=== PATIENT | female | born 1955 | race Caucasian/White ===

== ENCOUNTER 2020-07-24 06:29 | Observation (INO) ==
--- NOTE | 2020-07-22 08:26 | Anesthesiology Consultation ---
Date of Service July 22, 2020 Assessment & Plan (1) Encounter for pre-operative examination: Chart Review Chart Review: Acceptable Risk for Surgery (pending DOS CBC with diff ) and Patient NOT seen in Pre Admission Testing -Will check CBC with diff stat AM of surgery (secondary to current chemo treatment) Per nursing assessment 07/04/2020, patient denies any recent travel. No known Covid infection in the past 90 days. No known Covid positive contacts or Covid related symptoms. Covid test 07/18/20= negative Iwsjeu-b-Hdal insertion 02/28/2020 = done under MAC. No anesthesia issues noted per anesthesia record. Most recent cardiology office visit note (dated 11/12/19). Per note, PMHX of SVT (asymptomatic on beta yehuda) and mild MR/TR. No acute complaints. Recommend f/u in one year. History Surgery Operation Date: 07/24/20 07:00 Proposed Procedures p Bilateral Breast Mastectomy with Left Axillary [place] Lymph Node Biopsy - Win Singh, DO Height/Weight Height: 5 ft 8 in Weight: 58.967 kg Allergies Allergy/AdvReac Type Severity Reaction Status Date / Time Sulfa (Sulfonamide Allergy Intermediate hives Verified 07/04/20 13:39 Antibiotics) Medications Home Medications Medication Instructions Recorded Confirmed Last Taken atenolol 25 mg tablet 25 mg PO QPM 02/13/20 07/04/20 02/27/20 15:00 cholecalciferol (vitamin D3) 50 50 mcg PO QPM 02/13/20 07/04/20 02/27/20 15:00 mcg (2,000 unit) capsule hydroxyzine HCl 10 mg tablet 10 mg PO TID PRN 02/13/20 07/04/20 02/27/20 17:00 multivitamin 1 tab PO QPM 02/13/20 07/04/20 02/27/20 15:00 pantoprazole 40 mg PO QPM 07/04/20 07/04/20 Unknown Past Medical History Medical History (Updated 07/22/20 @ 08:40 by Yin Estrada PA-C) Anxiety Breast cancer left > reason for port placement Cardiac murmur dx 20 yrs ago 06/2020 ECHO showed mild to moderate MR, mild TR GERD (gastroesophageal reflux disease) Hiatal hernia Hx gestational diabetes Hypertension SVT (supraventricular tachycardia) FOLLOWS WITH DR. MARTINEZ (LAST SAW OCTOBER 2019) Tricuspid regurgitation Past Family History Family History Grandmother (Maternal) Heart disease Mother Hypertension Uncle Diabetes Other No family history of adverse response to anesthesia Past Surgical History Surgical History History of arthroscopic knee surgery 2000> left History of colonoscopy History of ear surgery was deaf in left ear, surgically repaired 1964 History of esophagogastroduodenoscopy (EGD) History of laparoscopic cholecystectomy 1977 History of laparoscopy x2 History of tooth extraction Hx of breast biopsy left Hx of tonsillectomy Port-A-Cath in place (02/28/20) Insertion of Mediport with Fluoroscopy Right Subclavian Dr. Singh 02/28/2020 (CHEMO EVERY 3 WEEKS/UNDER CURRENT TREATMENT) Social History Smoking Status: Never smoker Hx Alcohol Use: No Hx Substance Use: No substance use type: does not use Testing Laboratory Results Laboratory Tests 07/18/20 07/18/20 09:36 09:36 WBC 3.80 L Hgb 10.1 L Hct 30.4 L Plt Count 304 Sodium 140 Potassium 3.6 Chloride 106 Carbon Dioxide 29 BUN 14 Creatinine 0.82 Glucose 79 Electrocardiogram Date: 02/22/20 Findings: + NSR @ (61) Chest X-Ray Date: 02/28/20 A right subclavian central venous infusion port has been placed as above. No pneumothorax is identified post procedure. Suspect emphysema. No airspace consolidation or large pleural effusion is identified. Echocardiogram Date: 07/03/20 EF: 55% LV Function: normal Valvular Disease: + MR (Mild to moderate) Mild TR. Mildly increased PASP (36 mmHg).
[~2020-07-24 06:29] MED LIST: LACTATED RINGER'S 1,000 ML IV SCH; ceFAZolin 2000MG 2,000 MG/15 ML SYR IV SCH
[2020-07-24 07:02] LABS: Basophils # (auto) 0.02 K/uL (0-0.2); Basophils % (auto) 0.4 %; Eosinophils # (auto) 0.15 K/uL (0-0.5); Eosinophils % (auto) 2.7 %; Hematocrit (blood only) 30.1 % (37-47); Hemoglobin 10.1 g/dL (12.0-16.0); Lymphocytes # (auto) 1.92 K/uL (1.2-3.4); Lymphocytes % (auto) 33.9 %; Mean Corpuscular Hemoglobin 33.3 pg (25-34); Mean Corpuscular Volume 99.3 fL (80-100); Mean Platelet Volume 9.2 fL (7.4-10.4); Monocytes # (auto) 0.57 K/uL (0.11-0.59); Monocytes % (auto) 10.1 %; Neutrophils % (auto) 52.9 %; Platelet Count 174 K/uL (130-400); RDW Coefficient of Variation 13.8 % (11.5-14.5); RDW Standard Deviation 49.9 fL (36.4-46.3); Red Blood Count 3.03 M/uL (4.2-5.4); White Blood Count 5.66 K/uL (4.8-10.8)
[2020-07-24 07:06] LABS: Mean Corpuscular Hgb Conc 33.6 g/dL (32-36)
[2020-07-24] MEDS ORDERED: MIDAZOLAM HCL 1 MG/ML 2ML VIAL ONE ×2 (07:07→08:45)
[2020-07-24] MEDS ORDERED: ONDANSETRON INJ 2 MG/ML 2 ML VIAL ONE (07:07)
[2020-07-24] MEDS ORDERED: PROPOFOL IV EMULSION 10 MG/ML 20 ML VIAL IV ONE (07:07)
[2020-07-24] MEDS ORDERED: DEXAMETHASONE SOD INJ 4 MG/ML VIAL ONE (07:07)
[2020-07-24] MEDS ORDERED: fentaNYL citrate 100 MCG/2 ML VIAL ONE ×2 (07:07→10:42)
[2020-07-24] MEDS ORDERED: BUPIVACAINE LIPOSOME 1.3% 266 MG/20 ML VIAL ONE (07:15)
[2020-07-24] MEDS ORDERED: BUPIVACAINE 0.25% 30 ML VIAL ONE (07:44)
--- NOTE | 2020-07-24 08:44 | Nuclear Medicine Report ---
NM sentinel node inject only (left breast) CLINICAL HISTORY: LEFT AXILLARY SENTINEL NODE BIOPSY COMPARISON STUDY: No previous studies for comparison. FINDINGS: A timeout was performed. Five periareolar injections utilizing a total dose of 0.48 mCi technetium 99m Lymphoseek were perform ed. The patient was sent to the operating room for intraoperative localization. IMPRESSION: Successful left breast sentinel lymphoscintigraphy injection. ACT 112: Negative or not required by law. Electronically signed by: Osman Zavaleta M.D. 07/24/2020 8:43 AM
--- NOTE | 2020-07-24 08:54 | History & Physical Report ---
Date of Service July 24, 2020 Assessment & Plan (1) Breast cancer, left: We are going to proceed today with bilateral mastectomy with left sentinel lymph node biopsy. We discussed the risks of this which include bleeding, infection, hematoma, seroma, neurovascular injury, lymphedema, positive margins, DVT, PE, WI, CVA etc. Following all this I answered her questions. Patient agrees with the plan. History of Present Illness Primary Care Provider: Virgilio Engyasmine Yeager is here today for bilateral mastectomy with left sentinel lymph node biopsy. She was diagnosed last year with left-sided breast cancer that was ER/CO negative and HER-2/roxy positive. She underwent neoadjuvant therapy by Dr. Evans. She is now here today for surgical resection. We previously discussed all her options. She is opting for mastectomy with left sentinel lymph node biopsy. We are also going to do a prophylactic right mastectomy. She has had no changes in her health since her last visit with me in the office. Allergies Allergy/AdvReac Type Severity Reaction Status Date / Time Sulfa (Sulfonamide Allergy Intermediate hives Verified 07/04/20 13:39 Antibiotics) Home Medications Medication Instructions Recorded Confirmed Type atenolol 25 mg tablet 25 mg PO QPM 02/13/20 07/24/20 History cholecalciferol (vitamin D3) 50 50 mcg PO QPM 02/13/20 07/24/20 History mcg (2,000 unit) capsule hydroxyzine HCl 10 mg tablet 10 mg PO TID PRN 02/13/20 07/24/20 History multivitamin 1 tab PO QPM 02/13/20 07/24/20 History pantoprazole 40 mg PO QPM 07/04/20 07/24/20 History Past Med/Surg History Medical History Anxiety Breast cancer left > reason for port placement Cardiac murmur dx 20 yrs ago 06/2020 ECHO showed mild to moderate MR, mild TR GERD (gastroesophageal reflux disease) Hiatal hernia Hx gestational diabetes Hypertension SVT (supraventricular tachycardia) FOLLOWS WITH DR. MARTINEZ (LAST SAW OCTOBER 2019) Tricuspid regurgitation Surgical History History of arthroscopic knee surgery 1999> left History of colonoscopy History of ear surgery was deaf in left ear, surgically repaired 1964 History of esophagogastroduodenoscopy (EGD) History of laparoscopic cholecystectomy 1977 History of laparoscopy x2 History of tooth extraction Hx of breast biopsy left Hx of tonsillectomy Port-A-Cath in place (02/28/20) Insertion of Mediport with Fluoroscopy Right Subclavian Dr. Singh 02/28/2020 (CHEMO EVERY 3 WEEKS/UNDER CURRENT TREATMENT) Family History Grandmother (Maternal) Heart disease Mother Hypertension Uncle Diabetes Other No family history of adverse response to anesthesia Social History (Updated 02/13/20 @ 14:18 by Johanna Tolbert RN) Smoking Status: Never smoker Second Hand Exposure: Yes ( A CHILD); Hx Alcohol Use: No Hx Substance Use: No Preferred Language: Marshallese Communication Ability: Effective Wind Energy Technician Required: No Beliefs That Will Affect Care: None marital status: Current Living Situation: Spouse current occupational status: retired How many Children do You have: 1 Feels Safe at Home: Yes Safety Concerns: Feels Safe At This Time Assistive Devices: Denture - Upper and Glasses Physical Exam Constitutional: WD/WN, vitals as above no acute distress and not ill appearing Eyes: PERRL, conjunctivae normal, anicteric sclerae EOM intact bilaterally ENMT: external ear and nose normal, oropharynx normal Ears: no hearing impairment Neck: trachea midline, no thyromegaly Respiratory: normal respiratory effort; no respiratory distress and does not use accessory muscles Cardiovascular: Rate/Rhythm: regular rate and regular rhythm Chest (Breasts): Additional Comments: No change in her breast exam. Gastrointestinal (Abdomen): normal bowel sounds, soft, nontender, no hepatosplenomegaly Skin: no rashes, warm and dry Psychiatric: Orientation: alert, oriented x 3 and cooperative Results & Data ([facility]) Vital Signs (Past 12 Hours) Vital Signs Temp Pulse Resp BP Pulse Ox 07/24/20 07:00 36.6 C 93 H 16 152/82 H 100
[2020-07-24] MEDS ORDERED: ISOSULFAN BLUE 10 MG/ML VIAL 5 ML ONE (09:07)
[2020-07-24] MEDS ORDERED: BUPIVACAINE/EPINEPHRINE 0.5% MPF 1:200,000 30 ML VIAL ONE (09:07)
[2020-07-24] MEDS ORDERED: LIDOCAINE HCL 2% 2 ML VIAL/AMP(20MG/ML) INFIL ONE (09:20)
[2020-07-24] MEDS ORDERED: ONDANSETRON INJ 2 MG/ML 2 ML VIAL IV PRN ×2 (09:38→14:07)
[2020-07-24] MEDS ORDERED: ePHEDrine sulfate 50 MG/ML AMP IV PRN (09:38)
[2020-07-24] MEDS ORDERED: fentaNYL citrate 100 MCG/2 ML VIAL IV PRN (09:38)
[2020-07-24] MEDS ORDERED: ATROPINE SULFATE 0.1 MG/ML 10ML SYR IV PRN (09:38)
[2020-07-24] MEDS ORDERED: HYDROmorphone INJ 2 MG/ML SYR/VIAL IV PRN (09:38)
[2020-07-24] MEDS ORDERED: ePHEDrine sulfate 50 MG/ML SYR ONE (10:41)
[2020-07-24] MEDS ORDERED: PHENYLEPHRINE 100MCG/ML 5ML SYR ONE (10:41)
[2020-07-24] MEDS ORDERED: ePHEDrine sulfate 50 MG/ML AMP ONE (11:30)
--- NOTE | 2020-07-24 13:03 | Post Operative Brief Note ---
PG Immediate Post Op with CF Date of Surgery July 24, 2020 Pre & Post Diagnosis Operation Date: 07/24/20 09:00 Pre-Op Diagnosis: Left Breast Cancer Post-Op Diagnosis: Left Breast Cancer I identified the patient and participated in the time-out.: Yes Procedure Operation Date: 07/24/20 09:00 Actual Procedures p Bilateral Breast Mastectomy with Left Axillary [place] Lymph Node Biopsy(Bilateral) - Win Singh DO Surgeon Win Singh DO It Security Project Manager marcial Vasquez Estimated Blood Loss 100 Findings Consistent with Post-Op Diagnosis Specimens Specimen Description: Fresh Specimen: A.) Right Breast out of body at 1052 1 long lateral 2 short superior skin anterior Fresh Specimen: B.) Left Breast out of body at 1205 2 short superior 1 long lateral skin anterior Fresh Specimen: C.) Left Axillary [place] Lymph Node #1 out of body at 1210 D.) Left Axillary [place] Lymph Node #2 out of body at 1214 Drains Lester-Bee Drain (15 F flat x2)
[2020-07-24] MEDS ORDERED: MoRPHine SULFATE 4 MG/ML 1 ML CARP\\VIAL IV PRN (14:07)
[2020-07-24] MEDS ORDERED: HYDROCODONE/ACETAMOPHEN 5/325MG TAB PO PRN ×2 (14:07)
[2020-07-24] MEDS ORDERED: MoRPHine SULFATE 2 MG/ML CARP IV PRN (14:07)
[2020-07-24] MEDS ORDERED: hydrOXYzine HCl 10 MG TAB PO PRN (14:07)
[2020-07-24] MEDS ORDERED: LACTATED RINGER'S 1,000 ML IV SCH (14:07)
[2020-07-24] MEDS: LACTATED RINGER'S 1,000 ML IV SCH (14:28)
--- NOTE | 2020-07-24 14:55 | Operative Report ---
PG Post Operative Report Pre & Post Diagnosis Operation Date: 07/24/20 09:00 Pre-Op Diagnosis: Left Breast Cancer Post-Op Diagnosis: Left Breast Cancer I identified the patient and participated in the time-out.: Yes Procedure Operation Date: 07/24/20 09:00 Actual Procedures p Bilateral Breast Mastectomy with Left Axillary [place] Lymph Node Biopsy(Bi lateral) - Win Singh DO Surgeon Win Singh DO Fire Supervisor marcial Vasquez Estimated Blood Loss 100 Findings Consistent with Post-Op Diagnosis Specimens 1. right breast 2. left breast 3. left axillary sentinel lymph nodes. Description of Procedure Prior to coming to the operating room the patient had been to radiology where she underwent placement of technetium 99 in her left nipple- areolar region. After that she was brought to the operating room and placed in supine position. Both arms were extended. The entire upper abdomen, entire chest ,both breasts ,upper arms and axilla were all sterilely prepped and draped in usual fashion. I began on the right side. We made an elliptical incision from the sternum around the breast into the right axilla. This was carried down through soft tissue using cautery. I made flaps in 360 degrees. We continued to use traction /countertraction and cautery for the majority of the dissection. We did use 3-0 Vicryl ties when needed for vascular control. We continued this dissection superiorly to the clavicle inferior to the inframammary fold and laterally into the axilla itself including the axillary tail. We took the tissue down to the pectoralis muscle posteriorly but left pectoralis fashion behind. Once we had the entire specimen out I marked it such that two short stitches were superior one long stitch was lateral and the nipple- areolar complex/skin represented the anterior margin. Any bleeding points were controlled using cautery. We thoroughly irrigated the wound. I then used tisseel sealant over all the raw surfaces to help prevent seroma and hematoma formation. We waited until this dried and then through a separate stab incision in the inferior lateral aspect we placed a #10 flat Lester-Bee drain. It was secured to the skin using 2-0 nylon. We then closed the wound in multiple layers using 0 Vicryl for deep layers 2-0 Vicryl for mid layers and 3-0 Monocryl in running fashion for the skin. Benzoin ,Steri-Strips, xeroform, gauze and tape were all used for dressing. Next We changed our gloves. My attention then turned to the left breast. Using a fresh blade but a similar incision we made an elliptical incision again from the midline /sternum around to the left axilla. Again I made skin flaps in 360 degrees. We continued to use traction/ countertraction to perform the mastectomy. Again superiorly we carried the tissue up to the clavicle, inferiorly to the inframammary fold and laterally into the axilla including the axillary tail. I did not see any gross abnormalities. Again we marked the specimen such that one long stitch was lateral ,two short stitches were superior and the skin /nipple areolar complex represented the anterior margin. Again we carried the dissection down to the pectoralis fascia but did not remove any pectoralis fascia. Next we used the neoprobe device to identify several left axillary lymph nodes. We were able to use traction/ countertraction and cautery to come around the pedicle of these nodes. We were able to identify two separate "hot" nodes which were both removed separately. They were sent as sentinel lymph node #1 and sentinel lymph node #2. After we had these two lymph nodes out there was minimal residual background activity. At this point I thoroughly irrigated the wound. There was adequate hemostasis. Again Tisseel sealant was placed on all the raw surfaces and allowed to dry. Again a #10 flat Lester-Bee drain was brought in through a separate stab incision and placed into the wound bed. Was also closed in multiple layers using 0 Vicryl for deep layers 2-0 Vicryl for mid layers and 3-0 Monocryl for skin. Again benzoin ,Steri-Strips,xeroform, gauze and tape were used as a dressing. A surgi-bra was also placed. My physician bankruptcy assistant was present for the entire case. She was instrumental in helping to prep the patient. She was critical in retraction/exposure throughout my entire dissection as well as with wound closure and dressing placement. I attest to the content of the Intraoperative Record and any orders documented therein. Any exceptions are noted below.
[2020-07-24] MEDS: IBUPROFEN 200 MG TAB PO SCH ×2 (15:41→19:44)
[2020-07-24] MEDS: ceFAZolin 2000MG 2,000 MG/15 ML SYR IV SCH (17:43)
[2020-07-24] MEDS ORDERED: PANTOprazole 40 MG TAB PO SCH (21:00)
[2020-07-24] MEDS ORDERED: ATENOLOL 25 MG TABLET PO SCH (21:00)
[2020-07-25] MEDS: ceFAZolin 2000MG 2,000 MG/15 ML SYR IV SCH ×2 (01:02→08:42)
[2020-07-25] MEDS: IBUPROFEN 200 MG TAB PO SCH ×2 (01:02→08:41)
[2020-07-25] MEDS: LACTATED RINGER'S 1,000 ML IV SCH (01:54)
[2020-07-25 07:52] LABS: Hematocrit (blood only) 22.1 % (37-47); Hemoglobin 7.4 g/dL (12.0-16.0); Mean Corpuscular Hemoglobin 33.2 pg (25-34); Mean Corpuscular Hgb Conc 33.5 g/dL (32-36); Mean Corpuscular Volume 99.1 fL (80-100); Mean Platelet Volume 9.2 fL (7.4-10.4); Platelet Count 160 K/uL (130-400); RDW Coefficient of Variation 14.1 % (11.5-14.5); RDW Standard Deviation 50.7 fL (36.4-46.3); Red Blood Count 2.23 M/uL (4.2-5.4); White Blood Count 8.05 K/uL (4.8-10.8)
[2020-07-25 08:17] LABS: Calcium 8.8 mg/dl (8.5-10.1); Creatinine Clr Calc Pharmacy 63.1 ml/min; Est GFR (African American) 81.6; Est GFR (Non-African American) 70.4; Potassium 3.8 mmol/L (3.5-5.1)
--- NOTE | 2020-07-25 09:39 | Surgery Progress Note ---
Date of Service July 25, 2020 Assessment & Plan (1) Breast cancer, left: Doing well. She would like to go home which I think is reasonable. Wound care instructions given. I would like to see her in about 1 week's time. Admission and Anticipated Discharge Date Admission Date: July 24, 2020 Subjective Patient doing well postoperative day #1. Pain a 2 out of 10. Physical Exam Physical Exam: Alert and oriented. No acute distress. JPs with small amount of serosanguineous fluid. Results & Data ([facility]) Vital Signs (Past 12 Hours) Vital Signs Temp Pulse Resp BP Pulse Ox 07/25/20 06:51 36.8 C 54 L 16 100/63 100 07/25/20 03:42 36.8 C 74 14 96/59 L 100 07/24/20 23:21 36.8 C 77 14 99/61 L 100 07/24/20 21:45 36.6 C 91 H 16 132/77 99 PG Care Time/CCT Total # of Minutes Spent Total Time Spent with Patient: Total time spent is greater than 50% in coordination of care (as documented) at patient's floor/unit and/or counseling patient: Coding Level of Care Code None Diagnoses Breast cancer, left C50.912
--- NOTE | 2020-07-29 11:46 | Discharge Summary ---
Date of Service July 29, 2020 Admission HPI Per Admitting Provider Shobha is here today for bilateral mastectomy with left sentinel lymph node biopsy. She was diagnosed last year with left-sided breast cancer that was ER/NH negative and HER-2/roxy positive. She underwent neoadjuvant therapy by Dr. Evans. She is now here today for surgical resection. We previously discussed all her options. She is opting for mastectomy with left sentinel lymph node biopsy. We are also going to do a prophylactic right mastectomy. She has had no changes in her health since her last visit with me in the office. Principal Diagnosis breast cancer, left s/p bilateral breast mastectomy Discharge Exam awake/alert Constitutional no acute distress Skin b/l breast MEGAN drains with serosanguineous drainage. Incisions c/d/i Discharge Data Allergies Allergy/AdvReac Type Severity Reaction Status Date / Time Sulfa (Sulfonamide Allergy Intermediate hives Verified 07/04/20 13:39 Antibiotics) Procedures Performed Operation Date: 07/24/20 09:00 Actual Procedures p Bilateral Breast Mastectomy with Left Axillary [place] Lymph Node Biopsy(Bilateral) - Win Singh, Ordered Studies 07/24/20 05:00 US - OR guided needle placemen Routine Hospital Course (1) Breast cancer, left: This is a 64yF with a PMH of left breast cancer who presented to the [facility] on 07/24/20 for a scheduled bilateral breast mastectomy and left sentinel lymph node biopsy. This was performed in the OR with Dr. Singh without event. The patient tolerated the procedure well, see op note for full details. The patient recovered in the PACU and was transferred to the surgical nursing floor in stable condition with MEGAN drain x2. Post operatively the patient's diet was advanced as tolerated and pain remained controlled with prn IV and po pain medication. Ambulation was encouraged as tolerated. On POD#1 the patient was tolerating a regular diet and pain remained well controlled. Bilateral MEGAN drains had minimal serosang. drainage. Drain care education provided to patient. She was deemed stable for discharge to home on 3. She was provided discharge instructions and was asked to follow up in clinic with Dr. Singh within 1-2 weeks. Total Time Total Time Spent Total Time Spent (In Minutes): 10 Discharge Plan Discharge Items Patient Disposition: Home - Self-Care Reason For Visit: Left Breast Cancer-- INJECT ONLY Discharge Diagnosis: bilateral mastectomy Activity: As commented below Lifting: No more than 10 pounds Bathing Comment: sponge bath until rains are removed Driving/Machine Use: when pain free Non-emergency contact: Surgeon Call non-emergency contact if: you have any medication questions, your pain is not controlled, you have a fever, your temperature is above 101.5, your wound has increased redness and your wound has increased drainage Follow-up/Referrals: Win Singh, DO [Surgeon] - 08/06/20 9:30 am (Call the office to make an appt for next Tuesday) Virgilio Tellez [Primary Care Provider] - Diet: Regular Addtl Attending Provider Instructions: Record total daily MEGAN drainage from each side remove dressings down to steri strips on tuesday or tuesday. dress with gau ze/tape daily. Pending Studies at Discharge: Yes Studies:: pathology Stand-Alone Forms: My [facility], Opioid Pain Management, Smoking Cessation Medications and DC Order Prescriptions: New hydrocodone-acetaminophen 5-325 mg tablet 1 - 2 tab PO .Q4-6h MDD 6 tabs PRN (Reason: pain) Qty: 18 RF: 0 Continued atenolol 25 mg tablet 25 mg PO QPM RF: 0 cholecalciferol (vitamin D3) 50 mcg (2,000 unit) capsule 50 mcg PO QPM RF: 0 multivitamin Tablet 1 tab PO QPM RF: 0 hydroxyzine HCl 10 mg tablet 10 mg PO TID PRN (Reason: Anxiety) RF: 0 pantoprazole 40 mg Tablet,Delayed Release (Dr/Ec) 40 mg PO QPM RF: 0 Discharge Orders: Discharge Order (Routine); Ordered 07/25/20 Ordered By: Jori Murphy Admission Data Admit Date/Time: 07/24/20 13:05 Attending Provider: Win Singh Admit Provider: Win Singh Primary Care Provider: Virgilio Tellez Other Interventions: Discharge Summary Assessment (RN) Last Done: 07/25/20 08:52 Coding Level of Care Code D/C Day Management <30 mins Diagnoses Breast cancer, left C50.912
--- NOTE | 2020-08-20 09:10 | Anesthesiology Progress Note ---
Date of Service August 20, 2020 Anesthesia Post Procedure Pain Intensity Bilateral Chest: Pain Intensity: 2 Notes Anesthetic Complications: no major complications apparent Notes: Review of EMR at this time indicates that pt was discharged without anesthesia-related complaints or complications.
== END 2020-07-25 10:27 | disposition home or self-care (01) ==
LOC: 3N 06:29 → ASU 06:29